=== PATIENT | male | born 1935 | race Caucasian/White ===

== ENCOUNTER → 2016-10-11 | Outpatient (RCR) | payer OTHER | LOC: M PT 09-13 13:09 | PROVIDERS: ATTEND Specialist | DX: Z51.89 Encounter for other specified aftercare (principal); C04.9 Malignant neoplasm of floor of mouth, unspecified | CPT/HCPCS: 97140; 97161; G8990; G8991 ==

== ENCOUNTER → 2016-11-08 | Outpatient (RCR) | payer OTHER | LOC: M PT 10-21 12:40 | PROVIDERS: ATTEND Specialist | DX: Z51.89 Encounter for other specified aftercare (principal); C04.9 Malignant neoplasm of floor of mouth, unspecified | CPT/HCPCS: 97140; G8978; G8979 ==

== ENCOUNTER 2016-11-17 13:53 | Outpatient (RCR) | payer OTHER | END 2016-12-09 | LOC: M PT 13:53 | PROVIDERS: ATTEND Specialist | DX: Z51.89 Encounter for other specified aftercare (principal); C04.9 Malignant neoplasm of floor of mouth, unspecified ==